=== PATIENT | female | born 1990 | race Caucasian/White ===

== ENCOUNTER 2020-06-05 07:45 | Inpatient (IN) | payer BC, OTHER ==
[2020-06-05] MEDS: DEXTROSE 5%-LACTATED RINGERS 1,000 ML IV SCH (09:00)
[2020-06-05] MEDS ORDERED: OXYTOCIN 30 UNITS in 0.9% NS 30 UNIT/500 ML INFUS.BAG IVPB SCH (09:15)
[2020-06-05 09:17] VITALS: BMI 32.8
[2020-06-05] MEDS ORDERED: PROMETHAZINE HCL 25 MG/1 ML VIAL IVPUSH ONE (09:18)
[2020-06-05] MEDS ORDERED: BUTORPHANOL TARTRATE 1 MG/ML VIAL IVPB ONE (09:18)
[2020-06-05] MEDS ORDERED: OXYTOCIN 30 UNITS in 0.9% NS 30 UNIT/500 ML INFUS.BAG IVPB ONE (09:50)
[2020-06-05 10:14] LABS: BASO % 0.4 % (0-2.0); EOS % 0.3 % (0-4.5); HEMATOCRIT 32.1 % (32.4-45.2); HEMOGLOBIN 10.6 GM/dL (10.7-15.3); LYMPH % 12.6 % (8-40); MCH 29.5 pg (25.7-33.7); MEAN CELL VOLUME 89.5 fl (80-96); MEAN PLT VOLUME 9.4 fl (7.5-11.1); MONO % 4.2 % (3.8-10.2); NEUT % 82.5 % (42.8-82.8); PLATELET COUNT 184 K/MM3 (134-434); RBC 3.58 M/mm3 (3.60-5.2); RDW 14.8 % (11.6-15.6); WHITE BLOOD COUNT 11.5 K/mm3 (4.0-10.0)
[2020-06-05 10:19] LABS: INR 0.92 (0.83-1.09); PROTHROMBIN TIME (PATIENT) 11.3 SEC (9.7-13.0)
[2020-06-05 10:22] LABS: ACTIVATED PTT 24.7 SECONDS (25.2-36.5)
[2020-06-05 10:28] LABS: POTASSIUM 3.9 mmol/L (3.5-5.1)
[2020-06-05 10:29] LABS: CALCIUM 8.5 mg/dL (8.5-10.1)
[2020-06-05 10:30] LABS: BLOOD UREA NITROGEN 6.4 mg/dL (7-18)
[2020-06-05 10:33] LABS: CREATININE 0.7 mg/dL (0.55-1.3)
[2020-06-05 11:24] LABS: HIV INTERPRETATION NEGATIVE (NEGATIVE)
[2020-06-05] MEDS ORDERED: BUTORPHANOL TARTRATE 2 MG/ML VIAL ONE (12:17)
[2020-06-05] MEDS ORDERED: PROMETHAZINE HCL 25 MG/1 ML VIAL ONE (12:18)
[2020-06-05] MEDS ORDERED: PCA PUMP NR ONE (14:42)
[2020-06-05] MEDS ORDERED: BUPIVACAINE HCL/PF 0.25% (2.5MG/ML) 10 ML VIAL ONE ×2 (14:53→17:29)
[2020-06-05] MEDS ORDERED: NALOXONE HCL 0.4 MG/ML VIAL IVPUSH PRN (15:21)
[2020-06-05] MEDS ORDERED: FENTANYL/BUPIVACAINE/NS/PF - PCEA - 50 ML DISP.SYRIN EP SCH (15:30)
[2020-06-05] MEDS ORDERED: FENTANYL/BUPIVACAINE/NS/PF - PCEA - 50 ML DISP.SYRIN EP ONE (18:36)
[2020-06-05] MEDS ORDERED: OXYTOCIN 20 UNITS in 0.9% NS 20 UNIT/1,000 ML INFUS.BAG IV ONE (18:56)
[2020-06-05] MEDS ORDERED: LIDOCAINE HCL 1% PRESERVATIVE FREE - 30ML VIAL ONE (18:56)
[2020-06-05] MEDS: OXYTOCIN 20 UNITS in 0.9% NS 20 UNIT/1,000 ML INFUS.BAG IV SCH (19:35)
[2020-06-05] MEDS ORDERED: BISACODYL 10 MG SUPP.RECT RC PRN (20:36)
[2020-06-05] MEDS ORDERED: METHYLERGONOVINE MALEATE 0.2 MG/1 ML AMP IM PRN (20:36)
[2020-06-05] MEDS ORDERED: WITCH HAZEL 50% (TUCKS) 40 PAD/JAR PAD TP PRN (20:36)
[2020-06-05] MEDS ORDERED: BENZOCAINE 20% 57 GM BOTTLE TP PRN (20:36)
[2020-06-05] MEDS ORDERED: oxyCODONE HCL 5 MG TABLET PO PRN (20:36)
[2020-06-05] MEDS ORDERED: BENZOCAINE 28 GM HEMORRHOIDAL OINTMENT TP PRN (20:36)
[2020-06-06] MEDS: ACETAMINOPHEN 325 MG TABLET (FP) PO PRN ×3 (06:07→22:34)
[2020-06-06] MEDS: IBUPROFEN 600 MG TABLET (FP) PO PRN ×3 (06:08→22:35)
[2020-06-06 08:11] LABS: BASO % 0.5 % (0-2.0); EOS % 0.1 % (0-4.5); HEMATOCRIT 29.7 % (32.4-45.2); HEMOGLOBIN 9.6 GM/dL (10.7-15.3); LYMPH % 10.1 % (8-40); MCH 29.5 pg (25.7-33.7); MCHC 32.4 g/dl (32.0-36.0); MEAN CELL VOLUME 91.2 fl (80-96); MEAN PLT VOLUME 9.5 fl (7.5-11.1); MONO % 6.2 % (3.8-10.2); NEUT % 83.1 % (42.8-82.8); PLATELET COUNT 170 K/MM3 (134-434); RBC 3.26 M/mm3 (3.60-5.2); RDW 14.8 % (11.6-15.6); WHITE BLOOD COUNT 14.1 K/mm3 (4.0-10.0)
[2020-06-06] MEDS: PRENATAL VITAMINS W/ FOLIC ACID TABLET (FP) PO SCH (09:10)
[2020-06-06] MEDS ORDERED: SENNOSIDES/DOCUSATE COMBO (SENNA PLUS) TABLET (UD) PO PRN (22:00)
[2020-06-07] MEDS: OXYTOCIN 20 UNITS in 0.9% NS 20 UNIT/1,000 ML INFUS.BAG IV SCH (00:54)
[2020-06-07] MEDS: DEXTROSE 5%-LACTATED RINGERS 1,000 ML IV SCH (00:54)
[2020-06-07 08:47] VITALS: BP 124/74; PULSE 91; TEMP 97.7
[2020-06-07] MEDS: PRENATAL VITAMINS W/ FOLIC ACID TABLET (FP) PO SCH (09:13)
== END 2020-06-07 12:10 | disposition home or self-care (01) | DRG 807 ==
LOC: JLDR 07:45 → J3W 21:55
PROVIDERS: ADMIT Obstetrics & Gynecology; ATTEND Obstetrics & Gynecology
PROC: 10E0XZZ Delivery of Products of Conception, External Approach (ICD-10-PCS; principal; 2020-06-05)
PROC: 0W8NXZZ Division of Female Perineum, External Approach (ICD-10-PCS; 2020-06-05)
DX: O48.0 Post-term pregnancy (principal); Z37.0 Single live birth; Z3A.40 40 weeks gestation of pregnancy
CPT/HCPCS: 36415; 59409; 80048; 82962; 85025; 85610; 85730; 86780; 86850; 86900; 86901; 87389; C9803; U0003